=== PATIENT | female | born 1985 | race Caucasian/White ===

== ENCOUNTER 2021-03-20 12:54 | Outpatient (CLI) | payer OTHER | END 2021-03-20 17:03 | disposition home or self-care (01) | LOC: GENOP 12:54 | DX: O99.891 Other specified diseases and conditions complicating pregnancy (principal); R10.10 Upper abdominal pain, unspecified; O99.343 Other mental disorders complicating pregnancy, third trimester; F33.1 Major depressive disorder, recurrent, moderate; F41.1 Generalized anxiety disorder; Z3A.33 33 weeks gestation of pregnancy | CPT/HCPCS: 59025 ==

== ENCOUNTER 2021-03-26 13:35 | Observation (INO) | payer OTHER | END 2021-03-27 11:55 | disposition home or self-care (01) | LOC: GENOP 13:35 → OB 13:53 | PROVIDERS: Obstetrics & Gynecology; ADMIT Obstetrics & Gynecology | DX: O41.03X0 Oligohydramnios, third trimester, not applicable or unspecified (principal); O99.283 Endocrine, nutritional and metabolic diseases complicating pregnancy, third trimester; E03.9 Hypothyroidism, unspecified; O99.343 Other mental disorders complicating pregnancy, third trimester; F33.1 Major depressive disorder, recurrent, moderate; F41.1 Generalized anxiety disorder; O99.323 Drug use complicating pregnancy, third trimester; F11.20 Opioid dependence, uncomplicated; Z3A.34 34 weeks gestation of pregnancy; Z20.822 Contact with and (suspected) exposure to COVID-19 | CPT/HCPCS: 59025; 80307; 81001; 96360; 96365; 96366; 96372; G0378; J0702; U0002 ==

== ENCOUNTER 2021-04-12 05:51 | Inpatient (IN) | payer OTHER ==
[2021-04-12 07:21] LABS: HEMOGLOBIN 11.2 gm/dl (12.3-15.3); RED BLOOD COUNT 3.53 M/UL (4.00-5.10); WHITE BLOOD COUNT 12.4 K/UL (4.5-11.0)
[2021-04-12] MEDS ORDERED: IBUPROFEN600 MG PO (08:22)
[2021-04-12] MEDS ORDERED: COLACE 100MG C100 MG PO (08:22)
[2021-04-12] MEDS ORDERED: PERCOCET 10-321 EACH PO (08:22)
[2021-04-12] MEDS ORDERED: LEVOTHYROXINE100 MC2 PO (10:32)
[2021-04-12] MEDS ORDERED: VALTREX500 MG PO (10:33)
[2021-04-12] MEDS ORDERED: PRENATAL VITAM1 EAC6 PO (10:33)
[2021-04-13 05:05] LABS: HEMOGLOBIN 10.7 gm/dl (12.3-15.3)
== END 2021-04-14 12:48 | disposition home or self-care (01) | DRG 787 ==
LOC: OB 05:51
PROVIDERS: ADMIT Obstetrics & Gynecology
PROC: 10D00Z1 Extraction of Products of Conception, Low, Open Approach (ICD-10-PCS; principal; 2021-04-12 07:30)
DX: O34.211 Maternal care for low transverse scar from previous cesarean delivery (principal); F33.1 Major depressive disorder, recurrent, moderate; O99.324 Drug use complicating childbirth; F11.20 Opioid dependence, uncomplicated; O41.03X0 Oligohydramnios, third trimester, not applicable or unspecified; O13.4 Gestational [pregnancy-induced] hypertension without significant proteinuria, complicating childbirth; O99.284 Endocrine, nutritional and metabolic diseases complicating childbirth; O99.344 Other mental disorders complicating childbirth; F41.1 Generalized anxiety disorder; E03.9 Hypothyroidism, unspecified; O36.5930 Maternal care for other known or suspected poor fetal growth, third trimester, not applicable or unspecified; Z37.0 Single live birth; Z3A.37 37 weeks gestation of pregnancy; Z82.49 Family history of ischemic heart disease and other diseases of the circulatory system; Z83.3 Family history of diabetes mellitus; Z98.890 Other specified postprocedural states
CPT/HCPCS: 36415; 80307; 81001; 82800; 85014; 85018; 85025; 85461; 86850; 86900; 86901; 90715; C9113; J0690; J1170; J1650; J1885; J2250; J2270; J2370; J2405; J2590; J2704; J2790; J3010; J7120; Q0177

== ENCOUNTER → 2021-04-29 | Outpatient (CLI) | payer OTHER ==
[~2021-04-29] MED LIST: COLACE 100MG C100 MG PO; IBUPROFEN600 MG PO; LEVOTHYROXINE100 MC2 PO; PERCOCET 10-321 EACH PO; PRENATAL VITAM1 EAC6 PO; VALTREX500 MG PO
== END ==
LOC: US 16:00
DX: M79.89 Other specified soft tissue disorders (principal)
CPT/HCPCS: 93970